=== PATIENT | male | born 1950 | race Hispanic/Latino ===

== ENCOUNTER 2023-01-04 13:39 | Observation (INO) | payer OTHER, MEDICARE ==
[~2023-01-04] VITALS: Ht 180.3 cm; Wt 85.2 kg
[2023-01-04 14:42] LABS: BASOPHILS % (AUTO) 0.1 % (0.0-5.0); EOSINOPHILS % (AUTO) 2.5 % (0.0-8.0); HEMATOCRIT 29.7 % (42-54); LYMPHOCYTES % (AUTO) 14.3 % (21.0-51.0); MEAN CORPUSCULAR HEMOGLOBIN 29.3 pg (27.0-33.0); MEAN CORPUSCULAR HGB CONC 31.3 g/dL (32.0-36.0); MEAN CORPUSCULAR VOLUME 93.7 fL (79-99); MONOCYTES % (AUTO) 7.8 % (3.0-13.0); PLATELET COUNT (AUTO) 310 K/uL (130-400); RED BLOOD CELL COUNT(AUTO) 3.17 MIL/uL (4.50-6.20); RED CELL DISTRIBUTION WIDTH 14.5 % (11.0-15.5); WHITE BLOOD COUNT (AUTO) 6.8 K/uL (4.8-10.8)
[2023-01-04 14:52] LABS: CREATININE 1.4 mg/dL (0.5-1.5); POTASSIUM 4.3 mmol/L (3.5-5.1)
[2023-01-04 14:54] LABS: INR 1.12 (0.85-1.15); PROTHROMBIN TIME 12.1 SEC (9.6-11.6)
[2023-01-04 14:55] LABS: PARTIAL THROMBOPLASTIN TIME 25.1 SEC (26.3-35.5)
[2023-01-04 14:57] LABS: ALBUMIN 3.1 g/dL (3.5-5.0); TOTAL PROTEIN, SERUM 7.4 g/dL (6.0-8.3)
[2023-01-04] MEDS ORDERED: MORPHINE 2 MG SYG IVP PRN (16:00)
[2023-01-04] MEDS ORDERED: ONDANSETRON 4MG INJ IVP PRN (16:00)
[2023-01-04] MEDS ORDERED: ACETAMINOPHEN 500 MG TABLET PO PRN (16:00)
[2023-01-04] MEDS ORDERED: ISOS60TA77 PO (16:06)
[2023-01-04] MEDS ORDERED: ATOR40TA71 PO (16:06)
[2023-01-04] MEDS ORDERED: PANT40TA54 PO (16:06)
[2023-01-04] MEDS ORDERED: TAMS-1 PO (16:06)
[2023-01-04] MEDS ORDERED: FURO20TA4 PO (16:06)
[2023-01-04] MEDS ORDERED: FERR-72 PO (16:06)
[2023-01-04] MEDS ORDERED: METO-409 PO (16:06)
[2023-01-04] MEDS ORDERED: LINE600T14 PO (16:06)
[2023-01-04] MEDS ORDERED: MAGN400T7 PO (16:06)
[2023-01-04] MEDS ORDERED: GLIP5TAB11 PO (16:06)
[2023-01-04] MEDS ORDERED: METF-446 PO (16:06)
[2023-01-04] MEDS ORDERED: CLOP75TA32 PO (16:06)
[2023-01-04] MEDS ORDERED: AMIO200T68 PO (16:06)
[2023-01-04] MEDS ORDERED: IPRATROPIUM 0.5 MG/2.5 ML INH IH PRN (16:30)
[2023-01-04 17:10] LABS: HEMOGLOBIN A1C 6.2 % (4.0-6.0)
[2023-01-04 17:19] LABS: MAGNESIUM 1.5 mg/dL (1.80-2.40); THYROID STIMULATING HORMONE 1.97 uIU/mL (0.36-3.74)
[2023-01-04] MEDS ORDERED: MAGNESIUM 2GM PREMIX 50ML 50 ML IV SCH (18:00)
[2023-01-04] MEDS ORDERED: FUROSEMIDE 20 MG TABLET PO SCH (20:00)
[2023-01-04] MEDS: INSULIN HUMULIN R 100 UNIT/ML 3ML SQ SCH (20:40)
[2023-01-04] MEDS: ISOSORBIDE MONO 60MG SR TAB PO SCH (20:40)
[2023-01-04] MEDS ORDERED: ZYVOX 600 MG TAB PO SCH (21:00)
[2023-01-04] MEDS ORDERED: PANTOPRAZOLE 40 MG TAB DR PO SCH (21:00)
[2023-01-04 22:09] VITALS: BP 138/62
[2023-01-05 03:35] VITALS: BP 138/67
[2023-01-05 05:05] LABS: BASOPHILS % (AUTO) 0.4 % (0.0-5.0); EOSINOPHILS % (AUTO) 3.2 % (0.0-8.0); HEMATOCRIT 26.9 % (42-54); MEAN CORPUSCULAR VOLUME 93.7 fL (79-99); MONOCYTES % (AUTO) 11.2 % (3.0-13.0); PLATELET COUNT (AUTO) 263 K/uL (130-400); RED BLOOD CELL COUNT(AUTO) 2.87 MIL/uL (4.50-6.20); RED CELL DISTRIBUTION WIDTH 14.4 % (11.0-15.5); WHITE BLOOD COUNT (AUTO) 4.7 K/uL (4.8-10.8)
[2023-01-05 05:26] LABS: ALBUMIN 2.9 g/dL (3.5-5.0); CREATININE 1.1 mg/dL (0.5-1.5); POTASSIUM 3.6 mmol/L (3.5-5.1)
[2023-01-05] MEDS: INSULIN HUMULIN R 100 UNIT/ML 3ML SQ SCH ×2 (06:55→11:30)
[2023-01-05 07:38] VITALS: BP 134/70
[2023-01-05] MEDS: ISOSORBIDE MONO 60MG SR TAB PO SCH (08:39)
[2023-01-05] MEDS ORDERED: ASPIRIN 81 MG EC TAB PO SCH (09:00)
[2023-01-05] MEDS ORDERED: METOPROLOL SUCCINATE 50 MG TAB.SR.24H PO SCH (09:00)
[2023-01-05] MEDS ORDERED: FERROUS SULFATE 325 MG TABLET.DR PO SCH (09:00)
[2023-01-05] MEDS ORDERED: AMIODARONE 200 MG TABLET PO SCH (09:00)
[2023-01-05] MEDS ORDERED: ATORVASTATIN 40 MG TABLET PO SCH ×2 (09:00→11:30)
[2023-01-05] MEDS ORDERED: TAMSULOSIN HCL 0.4 MG CAP.ER.24H PO SCH (09:00)
[2023-01-05] MEDS ORDERED: MAGNESIUM OXIDE 400 MG TABLET PO SCH (09:00)
[2023-01-05] MEDS ORDERED: LINE600T14 PO (09:21)
[2023-01-05] MEDS ORDERED: FURO40TA5 PO (09:21)
[2023-01-05] MEDS ORDERED: FUROSEMIDE 40MG VIAL IV ONE (09:30)
[2023-01-05] MEDS ORDERED: KCL 20 MEQ ERTAB PO ONE (09:30)
[2023-01-05] MEDS ORDERED: IRON SUCROSE COMPLEX 500 MG in 0.9%NACL 50ML 50 ML IV ONE (09:30)
[2023-01-05] MEDS ORDERED: EPOETIN ALFA-EPBX (NON-ESRD) 10,000 UNIT/ML VIAL SQ ONE (09:30)
[2023-01-05 09:52] LABS: RETICULOCYTE % (AUTO) 1.74 % (0.42-2.23)
[2023-01-05 10:28] LABS: % IRON SATURATION 40.9 % (30-44)
[2023-01-05 10:42] LABS: FERRITIN 151 ng/mL (30-400)
[2023-01-05] MEDS ORDERED: COMPOUND IV MISC 1 EACH IVSOLN MISC PRN (11:00)
[2023-01-05] MEDS ORDERED: IRON SUCROSE COMPLEX 500 MG in 0.9% NACL 250ML 250 ML IV ONE (11:00)
[2023-01-05 11:50] VITALS: BP 136/74
[2023-01-06] MEDS ORDERED: FUROSEMIDE 20 MG TABLET PO SCH (09:00)
== END 2023-01-05 15:00 | disposition home or self-care (01) ==
LOC: EDH 13:39 → INTOOBSV 15:53 → EDHIP 15:53 → 4AH 21:59
PROVIDERS: ADMIT Internal Medicine; ATTEND Internal Medicine
DX: L03.116 Cellulitis of left lower limb (principal); I25.10 Atherosclerotic heart disease of native coronary artery without angina pectoris; D50.9 Iron deficiency anemia, unspecified; I12.9 Hypertensive chronic kidney disease with stage 1 through stage 4 chronic kidney disease, or unspecified chronic kidney disease; E11.22 Type 2 diabetes mellitus with diabetic chronic kidney disease; N18.30 Chronic kidney disease, stage 3 unspecified; D63.1 Anemia in chronic kidney disease; E78.5 Hyperlipidemia, unspecified; N40.0 Benign prostatic hyperplasia without lower urinary tract symptoms; E83.42 Hypomagnesemia; Z86.73 Personal history of transient ischemic attack (TIA), and cerebral infarction without residual deficits; Z95.1 Presence of aortocoronary bypass graft; Z95.5 Presence of coronary angioplasty implant and graft; Z79.899 Other long term (current) drug therapy
CPT/HCPCS: 96365; 99285; 83036; 84443; 82550; 83735 ×2; 80053 ×2; 85025 ×2; 85610; 85730; 85651; 82948 ×4; 86140; 36415 ×2; 93971; 84145; 96372; 96366; 96375; 83540; 83550; 83880; 82728; 85045; 82607; 82746; J3475; G0378 ×4; J1756 ×2; J1940; J7050; Q5106

== ENCOUNTER 2023-01-13 10:04 | Emergency (ER) | payer MEDICARE, OTHER ==
[~2023-01-13] VITALS: Ht 177.8 cm; Wt 86.6 kg
[~2023-01-13 10:04] MED LIST: AMIO200T68 PO; ATOR40TA71 PO; CLOP75TA32 PO; FERR-72 PO; FURO40TA5 PO; GLIP5TAB11 PO; ISOS60TA77 PO; LINE600T14 PO; MAGN400T7 PO; METF-446 PO; METO-409 PO; PANT40TA54 PO; TAMS-1 PO
[2023-01-13 10:39] LABS: BASOPHILS % (AUTO) 0.3 % (0.0-5.0); EOSINOPHILS % (AUTO) 1.7 % (0.0-8.0); HEMATOCRIT 29.8 % (42-54); MEAN CORPUSCULAR HEMOGLOBIN 29.5 pg (27.0-33.0); MEAN CORPUSCULAR HGB CONC 31.9 g/dL (32.0-36.0); MEAN CORPUSCULAR VOLUME 92.5 fL (79-99); MONOCYTES % (AUTO) 11.7 % (3.0-13.0); NEUTROPHILS % (AUTO) 67.5 % (40.0-77.0); PLATELET COUNT (AUTO) 235 K/uL (130-400); RED BLOOD CELL COUNT(AUTO) 3.22 MIL/uL (4.50-6.20); RED CELL DISTRIBUTION WIDTH 15.9 % (11.0-15.5); WHITE BLOOD COUNT (AUTO) 7.8 K/uL (4.8-10.8)
[2023-01-13 10:49] LABS: CREATININE 1.5 mg/dL (0.5-1.5)
[2023-01-13 10:57] LABS: ALBUMIN 3.3 g/dL (3.5-5.0); TOTAL PROTEIN, SERUM 6.9 g/dL (6.0-8.3)
[2023-01-13 11:43] LABS: APPEARANCE,URINE CLEAR (CLEAR); BILIRUBIN,URINE NEGATIVE (NEGATIVE); COLOR,URINE YELLOW (YELLOW); GLUCOSE, URINE (UA) NEGATIVE (NEGATIVE); KETONES,URINE NEGATIVE (NEGATIVE); LEUKOCYTE ESTERASE ,URINE 25 Leu/uL (NEGATIVE); NITRATE,URINE NEGATIVE (NEGATIVE); OCCULT BLOOD,URINE NEGATIVE (NEGATIVE); PH,URINE 5.5 (5.0-8.0); PROTEIN,URINE 30 mg/dL (NEGATIVE); UROBILINOGEN,URINE 0.2 mg/dL (0.2-1.0)
[2023-01-13 12:02] LABS: HYALINE CASTS, URINE 26-50 /LPF (0-1 /LPF); MUCUS,URINE RARE LPF (None Seen); OTHER CASTS, URINE 6 /LPF (None Seen); SQUAMOUS EPITHELIAL CELL,UR RARE /HPF (0-2)
[2023-01-13 12:26] LABS: MAGNESIUM 1.6 mg/dL (1.80-2.40)
[2023-01-13] MEDS ORDERED: MAGNESIUM 2GM PREMIX 50ML 50 ML IV ONE (14:30)
[2023-01-13] MEDS ORDERED: METO-391 PO (16:41)
[2023-01-13 17:11] VITALS: BP 124/50
== END 2023-01-13 17:13 | disposition home or self-care (01) ==
LOC: EDH 10:04
DX: I95.9 Hypotension, unspecified (principal); R11.2 Nausea with vomiting, unspecified; I25.10 Atherosclerotic heart disease of native coronary artery without angina pectoris; E11.9 Type 2 diabetes mellitus without complications; E78.00 Pure hypercholesterolemia, unspecified; I10 Essential (primary) hypertension; Z79.02 Long term (current) use of antithrombotics/antiplatelets; Z79.899 Other long term (current) drug therapy; Z88.8 Allergy status to other drugs, medicaments and biological substances; Z95.1 Presence of aortocoronary bypass graft; Z95.5 Presence of coronary angioplasty implant and graft
CPT/HCPCS: 99285; 96374; 83735; 84484; 80053; 83690; 85025; 87077; 87088; 87186; 83605 ×2; 81001; 36415; 93005; J3475